=== PATIENT | male | born 1955 | race Caucasian/White ===

== ENCOUNTER 2016-07-31 01:55 | Emergency (ER) | payer SELFPAY ==
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
[2016-07-31] MEDS ORDERED: CHEWABLE ASPIRI81 MG PO (02:15)
[2016-07-31] MEDS ORDERED: NORVASC10 MG PO (02:15)
== END 2016-07-31 04:52 | disposition home or self-care (01) ==
LOC: SED 01:55
DX: S16.1XXA Strain of muscle, fascia and tendon at neck level, initial encounter (principal); S29.012A Strain of muscle and tendon of back wall of thorax, initial encounter; S20.219A Contusion of unspecified front wall of thorax, initial encounter; I10 Essential (primary) hypertension; Z79.82 Long term (current) use of aspirin; W18.30XA Fall on same level, unspecified, initial encounter
CPT/HCPCS: 70450; 70490; 71020; 72072; 72125; 99284